=== PATIENT | female | born 1950 | race Caucasian/White ===

== ENCOUNTER 2021-11-10 16:19 | Outpatient (NON) | payer MEDICARE, SELFPAY ==
[2021-11-10 17:20] LABS: Alanine Aminotransferase 17 U/L (4-35); Albumin Level 3.5 g/dL (3.5-5.1); Alkaline Phosphatase 212 U/L (38-126); Anion Gap 7 mmol/L (8-16); Aspartate Amino Transferase 31 U/L (14-36); Bilirubin,Total 1.2 mg/dL (0.2-1.3); Blood Urea Nitrogen 40 mg/dL (7-17); Calcium 8.8 mg/dL (8.4-10.2); Carbon Dioxide 25 mmol/L (22-30); Chloride 110 mmol/L (98-107); Estimated Glomerular Filt Rate 32; Glucose 95 mg/dL (65-110); Potassium 3.9 mmol/L (3.4-5.0); Sodium 142 mmol/L (137-145)
== END 2021-11-10 16:20 | disposition home or self-care (01) ==
PROVIDERS: Referring Provider Internal Medicine Nephrology; Visit Provider Internal Medicine
DX: E11.9 Type 2 diabetes mellitus without complications (principal)
CPT/HCPCS: 80053

== ENCOUNTER 2022-01-20 11:58 | Outpatient (CLI) | payer MEDICARE, SELFPAY ==
--- NOTE | ~2022-01-20 | US_ITS ---
EXAMINATION:US venous doppler LE RT INDICATION:Right leg swelling TECHNIQUE: Multiple grayscale, color flow and Doppler images of the right lower extremity deep venous systems were obtained and reviewed. COMPARISON:No prior studies for comparison. FINDINGS: The common femoral, superficial femoral and popliteal veins demonstrate normal respiratory variation, augmentation and compressibility. Color flow is also seen within the posterior tibial, pe roneal, greater saphenous and profunda veins. IMPRESSION: 1: No lower extremity deep venous thrombosis. Reviewed, dictated and finalized at location A.
== END 2022-01-20 11:59 | disposition home or self-care (01) ==
PROVIDERS: PCP Internal Medicine; Visit Provider Orthopaedic Surgery
DX: R60.0 Localized edema (principal)
CPT/HCPCS: 93971

== ENCOUNTER 2022-04-28 11:11 | Outpatient (CLI) | payer MEDICARE, SELFPAY ==
--- NOTE | ~2022-04-28 | US_ITS ---
EXAMINATION: US venous doppler [facility] DATE: 04/28/2022 12:17 INDICATION: Lower limb pain and swelling TECHNIQUE: Grayscale ultrasound images without and with compression and Doppler ultrasound images of the bilateral lower extremity veins were obtained. COMPARISON: 01/20/2022 FINDINGS: The visualized portions of right common femoral vein, profunda (deep) femoral vein, femoral vein, pop liteal vein, gastrocnemius vein and greater saphenous vein outflow are patent. There is prominent sub cutaneous edema at the right calf. Similar pattern of normal directional flow is seen in the region o f the right posterior tibial and peroneal veins which are not clearly visualized. The visualized portions of left common femoral vein, profunda femoral vein, femoral vein, popliteal v ein, posterior tibial veins, peroneal veins, gastrocnemius vein and greater saphenous vein outflow ar e patent. Mild subcutaneous edema at the left calf. IMPRESSION: 1. No deep venous thrombosis in either lower limb. Visualization of the right posterior tibial and p eroneal veins is suboptimal due primarily to a moderate amount of subcutaneous edema. Reviewed, dictated and finalized at location A. IMPRESSION: 1. No deep venous thrombosis in either lower limb. Visualization of the right posterior tibial and peroneal veins is suboptimal due primarily to a moderate a mount of subcutaneous edema.
== END 2022-04-28 11:12 | disposition home or self-care (01) ==
PROVIDERS: PCP Internal Medicine; Visit Provider Orthopaedic Surgery
DX: R60.0 Localized edema (principal)
CPT/HCPCS: 93970

== ENCOUNTER 2022-10-03 11:40 | Outpatient (CLI) | payer MEDICARE, SELFPAY ==
[2022-10-03 12:53] LABS: Albumin Level 3.6 g/dL (3.5-5.1); Anion Gap 4 mmol/L (8-16); Blood Urea Nitrogen 76 mg/dL (7-17); Calcium 8.9 mg/dL (8.4-10.2); Carbon Dioxide 23 mmol/L (22-30); Chloride 109 mmol/L (98-107); Estimated Glomerular Filt Rate 18; Glucose 88 mg/dL (65-110); Phosphorus 4.6 mg/dL (2.5-4.5); Potassium 5.3 mmol/L (3.4-5.0); Sodium 136 mmol/L (137-145)
[2022-10-03 13:03] LABS: Sodium Urine Random 66 meq/L
== END 2022-10-03 11:41 | disposition home or self-care (01) ==
LOC: ANHLAB 11:47
PROVIDERS: PCP Internal Medicine; Visit Provider Internal Medicine Nephrology
DX: N18.32 Chronic kidney disease, stage 3b (principal)
CPT/HCPCS: 36415; 80069; 82570; 84300

== ENCOUNTER 2023-05-28 16:34 | Emergency (ER) | payer MEDICARE, SELFPAY ==
[2023-05-28 16:47] VITALS: BP 153/63; PULSE 78; RESP 20; TEMP 36.4; O2SAT 98
--- NOTE | 2023-05-28 16:51 | ED.GENADULT ---
HPI - General Adult General Chief complaint: Recheck/Abnormal Lab/Rx <Jelena Pederson CLAIM ATTORNEY - Last Filed: 05/29/23 09:05> Stated complaint: creatinine elevated <Jelena Pederson CLAIM ATTORNEY - Last Filed: 05/29/23 09:05> Time Seen by Provider: 05/28/23 21:38 <Jelena Pederson CLAIM ATTORNEY - Last Filed: 05/29/23 09:05> Source: patient <Nadege Romeo PA-C - Last Filed: 05/28/23 23:54> Mode of arrival: ambulatory <Nadege Romeo PA-C - Last Filed: 05/28/23 23:54> Limitations: no limitations <Nadege Romeo PA-C - Last Filed: 05/28/23 23:54> History of Present Illness HPI narrative: Taryn Kaminski is a 72 y/o female with reported hx of chronic kidney disease, currently residing in a rehab facility to get stronger for home. She had routine labs drawn and her Creatinine was 4.3. Her family states the highest it has ever been is 3. Taryn did not want to come in she states she feels fine. Tiffany chest pain/ SOB/ flank pain/abdominal pain/ nausea vomiting/fever/chills She denies changes with her urine output. <Jelena Pederson, CLAIM ATTORNEY - Last Filed: 05/29/23 09:05> Taryn Kaminski is a 72 y/o female with reported hx of chronic kidney disease, currently residing in a rehab facility to get stronger for home. She had routine labs drawn and her Creatinine was 4.3. Her family states the highest it has ever been is 3. Taryn did not want to come in she states she feels fine. Tiffany chest pain/ SOB/ flank pain/abdominal pain/ nausea/ vomiting/fever/chills. She denies changes with her urine output. <Nadege Romeo PA-C - Last Filed: 05/28/23 23:54> Related Data Home medications: Home Medications Medication Instructions Recorded Confirmed acetaminophen 500 mg capsule 500 mg PO Q6H PRN 05/19/22 05/23/22 solifenacin 10 mg tablet (Vesicare) 10 mg PO DAILY PRN 05/19/22 05/23/22 <Jelena Small November, CLAIM ATTORNEY - Last Filed: 05/29/23 09:05> Allergies/adverse reactions: Allergies Allergy/AdvReac Type Severity Reaction Status Date / Time Penicillins Allergy Severe RASH Verified 08/28/22 10:47 Sulfa (Sulfonamide Allergy Severe ???RASH Verified 08/28/22 10:47 Antibiotics) atorvastatin [From Lipitor] AdvReac Severe Other Verified 08/28/22 10:47 codeine AdvReac Severe N/V Verified 08/28/22 10:47 metformin AdvReac Severe Gastrointestinal Verified 08/28/22 10:47 Upset oxycodone AdvReac Severe Hallucinati Verified 08/28/22 10:47 ng GENTAMICIN SULFATE Allergy Severe RASH Uncoded 08/28/22 10:47 <Jelena Small November, - Last Filed: 05/29/23 09:05> Review of Systems Review of Systems: CONSTITUTIONAL: Denies fever GASTROINTESTINAL: Denies abdominal pain, nausea, vomiting GENITOURINARY: Denies dysuria or hematuria. <Nadege Romeo PA-C - Last Filed: 05/28/23 23:54> All systems reviewed & are unremarkable except as noted in HPI and below <Nadege Romeo PA-C - Last Filed: 05/28/23 23:54> [facility] Past Medical History Medical History: Medical History Anemia Diabetic neuropathy Gout Hyperlipidemia Hypertension Obesity (BMI 30.0-34.9) LIBIA (obstructive sleep apnea) Osteoarthritis of right hip Overactive bladder Periodic health assessment, general screening, adult Pre-op evaluation Rheumatoid arthritis Stage 3 chronic kidney disease Type 2 diabetes mellitus Urolithiasis uric acid stones Vitamin D deficiency <Jelena Small November, - Last Filed: 05/29/23 09:05> Surgical History Surgical History: Surgical History History of appendectomy History of left hip replacement Status post right hip replacement <Jelena Small November, CLAIM ATTORNEY - Last Filed: 05/29/23 09:05> Family History Family History: Family History Father Cerebrovascular accident Chronic obstructive pulmonary disease Hypertension Sibling Uterine cancer <Jelena Pederson A
[2023-05-28 19:10] VITALS: BP 165/63; PULSE 71; RESP 18; TEMP 36.1; O2SAT 99
[2023-05-28 21:59] LABS: Basophils Absolute Auto 0.1 K/mm3 (0.0-0.1); Basophils Percent Auto 1.4 % (0.2-1.2); Eosinophils Absolute Auto 0.6 K/mm3 (0-0.3); Eosinophils Percent Auto 7.3 % (0-4.4); Hematocrit 33.4 % (37.0-47.0); Hemoglobin 10.4 g/dL (12.0-15.0); Immature Granulocyte Absolute 0.02 K/mm3 (0.00-0.031); Immature Granulocyte Percent A 0.3 % (0-0.5); Lymphocytes Absolute Auto 1.68 K/mm3 (0.9-3.2); Mean Corpuscular HGB Conc 31.1 g/dl (32-36); Mean Corpuscular Hemoglobin 27.9 pg (26-34); Mean Corpuscular Volume 89.5 fl (80-100); Mean Platelet Volume 9.6 fl (7.4-10.4); Monocytes Absolute Auto 0.9 K/mm3 (0.1-0.6); Monocytes Percent Auto 10.8 % (2.6-8.5); Neutrophils Absolute Auto 4.8 K/mm3 (1.3-6.7); Neutrophils Percent Auto 59.2 % (45.5-73.1); Platelet Count Result 230 k/mm3 (150-375); Red Blood Count 3.73 M/mm3 (4.2-5.4); Red Cell Distribution Width 17.2 % (11.5-14.5)
[2023-05-28 22:03] LABS: Appearance Urine Clear (Clear); Bacteria Urine 1+ /hpf; Bilirubin Urine Negative (Negative); Blood Urine Trace (Negative); Color Urine Yellow (Yellow); Glucose Urine UA Negative (Negative); Ketones Urine Negative (Negative); Leukocyte Esterase Ur Trace LEU/UL (Negative); Nitrate Urine Negative (Negative); Non Pathogenic Casts 0-2; Protein Urine 3+ mg/dL (Negative); Specific Grav Ur 1.007 (1.001-1.035); Squamous Epithelial Cell Urine None seen /hpf (Few); Urobilinogen Urine 0.2 mg/dL (<2.0)
[2023-05-28 22:08] LABS: Alanine Aminotransferase 17 U/L (6-35); Albumin Level 3.9 g/dL (3.5-5.1); Alkaline Phosphatase 108 U/L (38-126); Anion Gap 8 mmol/L (8-16); Aspartate Amino Transferase 30 U/L (14-36); Bilirubin,Total 1.1 mg/dL (0.2-1.3); Blood Urea Nitrogen 57 mg/dL (7-17); Calcium 9.4 mg/dL (8.4-10.2); Carbon Dioxide 26 mmol/L (22-30); Chloride 105 mmol/L (98-107); Estimated CRCL calculation 22 ml/min; Estimated Glomerular Filt Rate 16; Glucose 105 mg/dL (65-110); Potassium 4.2 mmol/L (3.4-5.0); Sodium 139 mmol/L (137-145)
[2023-05-28 23:03] LABS: Add Urine Microscopic? YES
[2023-05-28 23:39] LABS: Glucose Point of Care 116 mg/dl (65-105)
[2023-05-28 23:58] VITALS: BP 148/62; PULSE 70; RESP 15; O2SAT 98
== END 2023-05-28 23:59 ==
PROVIDERS: Nurse Practitioner Family; Emergency Provider Physician Assistant; PCP Physician Assistant Medical
DX: N39.0 Urinary tract infection, site not specified (principal); E11.22 Type 2 diabetes mellitus with diabetic chronic kidney disease; I12.9 Hypertensive chronic kidney disease with stage 1 through stage 4 chronic kidney disease, or unspecified chronic kidney disease; N18.30 Chronic kidney disease, stage 3 unspecified; E11.40 Type 2 diabetes mellitus with diabetic neuropathy, unspecified; E78.5 Hyperlipidemia, unspecified; E66.9 Obesity, unspecified; Z68.37 Body mass index [BMI] 37.0-37.9, adult; E55.9 Vitamin D deficiency, unspecified; G47.33 Obstructive sleep apnea (adult) (pediatric); M06.9 Rheumatoid arthritis, unspecified; N32.81 Overactive bladder; Z96.643 Presence of artificial hip joint, bilateral; Z87.442 Personal history of urinary calculi; Z87.891 Personal history of nicotine dependence; Z79.84 Long term (current) use of oral hypoglycemic drugs
CPT/HCPCS: 36415; 80053; 81001; 82948; 85025; 87086; 87088; 99283